=== PATIENT | female | born 1950 | race Caucasian/White ===

== ENCOUNTER 2021-09-21 10:11 | Emergency (ER) | payer MEDICARE ==
[~2021-09-21] VITALS: Ht 170.2 cm; Wt 104.3 kg
[2021-09-21 10:15] VITALS: BP 108/55
[2021-09-21] MEDS ORDERED: PHENERGAN IV STA (10:17)
[2021-09-21] MEDS ORDERED: NS 50ML 50 ML IV ONE (10:37)
[2021-09-21] MEDS ORDERED: PHENERGAN ONE (10:38)
--- NOTE | 2021-09-21 10:50 | ER.PDOC ---
General Chief Complaint: Extremities Stated Complaint: SHOULDER INJURY Time seen by MD: 10:02 Source: patient Exam Limitations: no limitations History of Present Illness Initial Comments pt was walking and trippped in her driveway. She landed on her right shoulder and it has been painful since Occurred: just prior to arrival Recent Injury: Yes (she landed on her right shoulder) Where: home Severity: moderate Exacerbated By: movement of Relieved By: rest Quality: pain, tenderness Past Medical History Medical History: high cholesterol, hypertension Social History Alcohol Use: none Drug Use: none Reviewed Nursing Reviewed: Vital Signs, Abn. Noted, Nursing Assessment Review of Systems Constitutional: no symptoms reported EENTM: no symptoms reported Respiratory: no symptoms reported Cardiovascular: no symptoms reported Gastrointestinal: no symptoms reported Genitourinary: no symptoms reported Musculoskeletal: joint pain, joint swelling Skin: no symptoms reported All Other Systems: Reviewed and Negative Physical Exam General Appearance: alert, no distress Upper Extremity: nml inspection Skin: color nml Vascular: no vascular compromise Neuro/Psych: sensation nml, motor nml Central Exam: oriented X3 EENT: eyes nml inspection Neck/Back: nml inspection Respiratory: no resp distress CVS: reg rate & rhythm Abdomen: non-tender Results/Orders Results/Orders Orders - TAI JOHNSON MD Xr Elbow Rt (09/21/21 10:12) Xr Shoulder Rt 2v (09/21/21 10:12) Promethazine Hcl (Phenergan) (09/21/21 10:17) 0.9 % Sodium Chloride (Ns 50ml) (09/21/21 10:37) Promethazine Hcl (Phenergan) (09/21/21 10:38) Vital Signs Date Time Temp Pulse Resp B/P (MAP) Pulse Ox O2 Delivery O2 Flow Rate FiO2 09/21/21 10:36 98.4 65 18 97 09/21/21 10:15 98.4 65 18 09/21/21 10:15 98.4 65 18 97 Administered Medications Medications (Trade) Dose Ordered Sig/Fany Route PRN Reason Start Time Stop Time Status Last Admin Dose Admin Promethazine HCl (Phenergan) 25 mg OT STAT IV 09/21/21 10:17 09/21/21 10:21 DC 09/21/21 10:40 25 MG Progress Progress she wants to followup with her [facility] physician in [place]. CD given to her and she was placed in a splint ER DEPART Departure Time of Disposition: 11:37 Disposition: 01 HOME / SELF CARE / HOMELESS Impression: Primary Impression: Humerus fracture Condition: Improved Duration or Time Spent with Pa: TAI CARBAJAL MD Sep 21, 2021 10:50
--- NOTE | 2021-09-21 11:05 | DIREP ---
PROCEDURE:XRAY ELBOW 2VWS-RT COMPARISON:None. INDICATIONS:fall and pain FINDINGS: BONES:Normal. JOINTS:Normal. No displaced anterior or posterior fat pads. SOFT TISSUES:Normal. OTHER:Normal. CONCLUSION:Normal right elbow. No fractures. Dictated by: Nolan Redmond M.D. on 09/21/2021 at 11:02 AM
--- NOTE | 2021-09-21 11:06 | DIREP ---
PROCEDURE:XRAY SHOULDER MIN 2 VWS-RT COMPARISON:None. INDICATIONS:elbow pain FINDINGS: BONES:Normal. JOINTS:Impacted fracture surgical neck of the humerus with fracture also involving the greater tuberosity. SOFT TISSUES:Normal. OTHER:Normal. CONCLUSION:Comminuted fracture proximal right humerus. Dictated by: Nolan Redmond M.D. on 09/21/2021 at 11:04 AM
[2021-09-21 11:55] VITALS: BP 126/58
== END 2021-09-21 11:55 | disposition home or self-care (01) ==
LOC: EDBD 10:11 → ER 10:11
DX: S42.211A Unspecified displaced fracture of surgical neck of right humerus, initial encounter for closed fracture (principal); E78.00 Pure hypercholesterolemia, unspecified; I10 Essential (primary) hypertension; Z79.899 Other long term (current) drug therapy; W01.0XXA Fall on same level from slipping, tripping and stumbling without subsequent striking against object, initial encounter; Y93.01 Activity, walking, marching and hiking; Y92.89 Other specified places as the place of occurrence of the external cause; Y99.8 Other external cause status
CPT/HCPCS: 29105; 73030; 73070; 96374; 99284; J2550